=== PATIENT | male | born 2000 | race Two or more races ===

== ENCOUNTER 2019-04-01 21:13 | Emergency (ER) | payer OTHER ==
[~2019-04-01] VITALS: Ht 193 cm; Wt 79.4 kg
--- NOTE | 2019-04-01 21:20 | NUR ---
ED Nurse Note: Patient was BIBA from his car due to anxiety. Patient presented anxious, states has numbness of his fingers, foots. AAO x4, VSS at this time, skin is dry warm to touch.
[2019-04-01 21:30] VITALS: BP 123/70
--- NOTE | 2019-04-01 21:41 | Emergency Room Report ---
History of Present Illness General Chief Complaint: Behavioral Complaint Source: EMS Present Illness HPI Patient is a 18-year-old male who presented after increased difficulty with breathing acute onset. He had prior history of asthma. Reports having associated tingling to his extremities. He states that he had some bilateral hand cramping at this time. Denies any recent stimulant use. Had not been vomiting or having diarrhea. He denies any prior cardiac history. He had been taking his inhaler medially prior to onset of symptoms.Denies any current leg pain or swelling. Allergies: Coded Allergies: No Known Allergies (Unverified , 04/01/19) Patient History Past Medical History: see triage record Reviewed Nursing Documentation: PMH: Agreed; PSxH: Agreed Nursing Documentation-PMH Hx Asthma: Yes Hx Neurological Problems: Yes - anxiety Review of Systems All Other Systems: negative except mentioned in HPI Physical Exam Vital Signs Date Time Temp Pulse Resp B/P (MAP) Pulse Ox O2 Delivery O2 Flow Rate FiO2 04/01/19 21:09 97.9 101 18 123/70 (87) 100 Room Air General Appearance: well appearing, no apparent distress, alert, GCS 15, non- toxic Head: normocephalic, atraumatic ENT: hearing grossly normal, normal voice Neck: full range of motion, supple Respiratory: lungs clear, no respiratory distress, speaking full sentences Cardiovascular #1: normal inspection, regular rate, rhythm, no edema, no gallop Gastrointestinal: normal inspection, non tender, soft, no mass Musculoskeletal: no calf tenderness Neurologic: normal inspection, alert, oriented x3, responsive, normal gait Psychiatric: mood/affect normal Skin: no rash Medical Decision Making Diagnostic Impression: Primary Impression: Asthma ER Course Patient presented for bilateral hand paresthesias and facial numbness. Differential diagnosis include was not limited to hyperventilation, anemia, myocardial infarction among others. Patient has a benign exam and does not appear to require any imaging or laboratory testing at this time. EKG interpreted by me showed normal sinus rhythm with a rate of [address] or T wave changes. Patient appears to have some evidence of hyperventilation are likely related the patient's asthma. Patient was given breathing treatment with some recurrence of symptoms. Patient does not appear to have any significant risk for pulmonary embolism. Patient's cramping and paresthesias appear related to use of albuterol. Patient appears to be stable for outpatient evaluation and treatment.Patient was given prescription for oral steroids. He is advised to return if worse. Last Vital Signs Date Time Temp Pulse Resp B/P (MAP) Pulse Ox O2 Delivery O2 Flow Rate FiO2 04/01/19 21:09 97.9 101 18 123/70 (87) 100 Room Air Status: improved Disposition: HOME, SELF-CARE Condition: Stable Scripts Prednisone* (PREDNISONE*) 20 Mg Tablet 40 MG ORAL DAILY, #10 TAB Prov: Tito Heller MD 04/01/19 Tito Heller MD Apr 01, 2019 21:40
[2019-04-01] MEDS ORDERED: PREDNISONE20 MG ORAL (21:42)
[2019-04-01] MEDS ORDERED: Albuterol/Ipratropium 3ml neb HHN ONE (22:15)
[2019-04-01 22:41] VITALS: BP 123/70
--- NOTE | 2019-04-01 22:42 | NUR ---
ED Nurse Note: Pt cleared by health care Provider for discharge. DC instructions/prescription was given and explained to pt and verbalized understanding of teachings. All medical deviecs such as ID band removed. Pt is AAO x4, ambulatory and left with all personal belongings.
== END 2019-04-01 22:41 | disposition home or self-care (01) ==
LOC: EDBD 21:13 → EMR 22:00
DX: J45.909 Unspecified asthma, uncomplicated (principal); F41.9 Anxiety disorder, unspecified
CPT/HCPCS: 93005; 94640; 94664; 99283; J7620